=== PATIENT | female | born 1930 | race Caucasian/White ===

== ENCOUNTER 2017-01-16 10:56 | Inpatient (IN) | payer MEDICARE, BC ==
[2017-01-16] MEDS ORDERED: Temazepam 15 MG Cap PO PRN (15:52)
[2017-01-16] MEDS ORDERED: Acetaminophen 325 MG Tab PO PRN (15:52)
[2017-01-16] MEDS ORDERED: Ondansetron 4 MG/2 ML SDV IV PRN (15:52)
[2017-01-16] MEDS ORDERED: Ondansetron 4 MG Tab.DIS PO PRN (15:52)
[2017-01-16] MEDS ORDERED: Ondansetron 8 MG in Sodium Chloride 0.9% 50 ML IV PRN (16:05)
[2017-01-16 16:26] LABS: CHLORIDE,CL 107 mEq/L (98-106); SODIUM,NA 141 mEq/L (136-145)
[2017-01-16] MEDS: Lactated Ringers 1,000 ML IV SCH (17:04)
[2017-01-16] MEDS: Atenolol 25 MG Tab PO SCH (19:35)
[2017-01-16] MEDS: Enoxaparin 30 MG/0.3 ML Syringe SUBCUT SCH (19:35)
[2017-01-16] MEDS: PRAVACHOL 10 MG PO SCH (19:37)
[2017-01-17] MEDS: Lactated Ringers 1,000 ML IV SCH (02:42)
[2017-01-17] MEDS: Atenolol 25 MG Tab PO SCH ×2 (07:39→19:48)
[2017-01-17] MEDS: SERTRALINE 50 MG PO SCH (07:41)
[2017-01-17] MEDS ORDERED: Sertraline 25 MG Tab PO SCH (08:00)
[2017-01-17] MEDS: AMLODIPINE BENAZEPRIL PO SCH (12:05)
[2017-01-17] MEDS: PRAVACHOL 10 MG PO SCH (19:47)
[2017-01-17] MEDS: Enoxaparin 30 MG/0.3 ML Syringe SUBCUT SCH (19:47)
[2017-01-18] MEDS: SERTRALINE 50 MG PO SCH (07:27)
[2017-01-18] MEDS: Atenolol 25 MG Tab PO SCH ×2 (07:28→20:16)
--- NOTE | 2017-01-18 08:58 | PN ---
DATE: 01/17/2017 S: Shanice was admitted last night for gastroenteritis likely viral. Her stools are still prevalent, but less in frequency than prior. She has not spiked any temps. Her vitals have been fine. Lab work on admission was all normal including an amylase. O: GENERAL: She is pleasant, alert, and cooperative. She appears in no distress. HEENT: Benign. Mucous membranes are moist. NECK: Supple. LUNGS: Clear. CARDIAC: Tones are regular. No abdominal pain. No peripheral edema. ASSESSMENT: GASTROENTERITIS. P: We will discontinue her IV fluids. Advanced her diet today if she tolerates. We are still waiting on stool studies. C diff was negative. Clinically, she looks much better, however. TERE/WYATT /[id number]
[2017-01-18] MEDS: AMLODIPINE BENAZEPRIL PO SCH (12:29)
--- NOTE | 2017-01-18 12:36 | PN ---
DATE: 01/18/2017 S: Shanice has been afebrile, but she is continuing to have profuse clear diarrhea. No real abdominal pain. She is not complaining of much nausea or vomiting. O: GENERAL: Her she is pleasant and cooperative. Appears in no distress. NECK: Supple. Veins are flat. LUNGS: Appear clear. CARDIAC: Tones are irregular. ABDOMEN: Soft and nontender with good bowel sounds. ASSESSMENT: GASTROENTERITIS. P: The patient continues to not show a lot of improvement. I am going to transfer to acute. I am going to restart her on some low rate IV fluids. She is not having great oral intake and we will continue to follow her electrolytes and renal function at this time. TERE/WYATT /[id number]
[2017-01-18] MEDS: Lactated Ringers 1,000 ML IV SCH ×2 (13:39→21:43)
[2017-01-18] MEDS: Enoxaparin 30 MG/0.3 ML Syringe SUBCUT SCH (20:17)
[2017-01-18] MEDS: PRAVACHOL 10 MG PO SCH (20:18)
[2017-01-19] MEDS: Lactated Ringers 1,000 ML IV SCH (05:52)
[2017-01-19] MEDS ORDERED: Sertraline 25 MG Tab PO SCH (08:00)
[2017-01-19] MEDS: Atenolol 25 MG Tab PO SCH ×2 (08:17→19:50)
[2017-01-19] MEDS: AMLODIPINE BENAZEPRIL PO SCH (12:23)
--- NOTE | 2017-01-19 15:06 | PN ---
DATE: 01/19/2017 S: Shanice is better, stool frequency is less still, not with any fluidity to it, but she is only going about every 4 to 5 hours now. We are still not finding any obvious etiology. Stool cultures apparently are still pending and I have yet to see them C. diff is negative. She has not had any fevers. She denies any pain at this time. O: GENERAL: She is pleasant, alert, and cooperative. NECK: Supple. Veins are flat. LUNGS: Clear. CARDIAC: Tones are irregular. ABDOMEN: Soft, completely benign, and nontender. ASSESSMENT: GASTROENTERITIS WITH DEHYDRATION. P: She looks clinically hydrated now. She is tolerating intake. We are going to get her up and ambulating, advance her diet. Stop her IV fluids. If she is doing well tomorrow, I am going to recommend she goes home. She is on a low- dose Zoloft, number one side effect of that can be loose stools, and so I am going to stop that for now. Still awaiting on stool cultures and we will try to have lab expedite that. TERE/WYATT /[id number]
[2017-01-19] MEDS: Enoxaparin 30 MG/0.3 ML Syringe SUBCUT SCH (19:26)
[2017-01-19] MEDS: PRAVACHOL 10 MG PO SCH (19:54)
[2017-01-20] MEDS: Atenolol 25 MG Tab PO SCH (08:27)
[2017-01-20] MEDS: AMLODIPINE BENAZEPRIL PO SCH (12:09)
[2017-01-20 12:14] VITALS: BP 110/54
--- NOTE | 2017-01-21 07:39 | DISCH ---
FINAL DIAGNOSIS: Acute gastroenteritis. HISTORY OF PRESENT ILLNESS: Shanice is an 86-year-old female who was admitted initially on the 01/16/2017 with gastroenteritis that was likely viral. She did have a normal laboratory. On admission, she was afebrile. LABORATORY DATA: Stool cultures were all grossly benign. CBC showed a normal white blood count at 7400. CMP was grossly unremarkable. Creatinine was mildly elevated at 1.3 which has improved down to 1.1 as of the 01/18/2017. Urinalysis was negative for UTI. HOSPITAL COURSE: Shanice had uneventful hospital stay. She has been gradually improving every single day. She does admit that she had a little bit of diarrhea this morning, however, this is slowly improving. Her appetite is slowly improving. She does admit that she feel her normal self. She does not get any IV or any fluids, and the treatment stopped. She has been trying to drink the fluids. She admits she had a little bit of coffee this morning. Now she states that she does feel a little bit of weak. However, she has been able to be ambulatory, get up and gradually improving strength as well. PHYSICAL EXAMINATION: VITAL SIGNS: This morning does show blood pressure 106/52 with a respiratory rate of 16, O2 is 96%, pulse is 72 with a temperature of 96.8. GENERAL: Pleasant, cooperative female. She is sitting in a chair, does not appear to be in any acute distress and does not appear to be acutely ill. HEENT: Grossly unremarkable. LUNGS: Clear to auscultation. I did not hear any adventitious sounds. CARDIAC: Regular rate and rhythm. No murmurs, gallops, or rubs are noted. ABDOMEN: Soft. Bowel sounds are normoactive. No organomegaly. No guarding or rigidity. No distention is noted. EXTREMITIES: No pedal edema is noted. ASSESSMENT: 1. Acute gastroenteritis. 2. Chronic diarrhea. PLAN: We will get discharging her home today. We will resume all home medications, however, that we will stop the sertraline as this was stopped yesterday with concerns of causing some chronic diarrhea. We will have her follow up with Dr. Barcenas on Monday for recheck. We did not give her any medications at this point in time to help with any diarrhea as we will wait to see if this sertraline shows any improvement. She does verbalize complete understanding. Does feel comfortable with going home today in which we will discharge at this time. LELAND/WYATT /[id number]
== END 2017-01-20 12:35 | disposition home or self-care (01) | DRG 392 ==
LOC: CC.MS 10:56 → UNDOADMOB 15:26 → CC.MS 15:26 → UNDOADMOB 15:52 → CC.MS 15:52 → OBSVTOIN 01-18 10:56
PROVIDERS: ADMIT Family Medicine; ATTEND Family Medicine
DX: A08.4 Viral intestinal infection, unspecified (principal); E86.0 Dehydration; M19.90 Unspecified osteoarthritis, unspecified site; K52.9 Noninfective gastroenteritis and colitis, unspecified; I48.91 Unspecified atrial fibrillation; F32.9 Major depressive disorder, single episode, unspecified; F41.9 Anxiety disorder, unspecified; K21.9 Gastro-esophageal reflux disease without esophagitis; I11.0 Hypertensive heart disease with heart failure; I50.9 Heart failure, unspecified; E78.00 Pure hypercholesterolemia, unspecified; G62.9 Polyneuropathy, unspecified; Z79.82 Long term (current) use of aspirin; Z79.899 Other long term (current) drug therapy; Z95.0 Presence of cardiac pacemaker
CPT/HCPCS: 36415 ×2; 74020; 80053; 81001; 82150; 85025; 86140; 87045; 87046 ×3; 87493; A9270 ×8; J1650 ×2; J7120 ×2; 80048; 96360; 96361; 96372; 99220; 99225; G0378

== ENCOUNTER 2018-05-23 13:41 | Observation (INO) | payer MEDICARE, BC ==
[2018-05-23 13:49] LABS: O2 DELIVERY DEVICE ROOM AIR
[2018-05-23 14:15] LABS: O2 SATURATION ARTERIAL 98 % (95-98); PCO2 ARTERIAL 31 mm/Hg0 (35-45); PO2 ARTERIAL 100 mm/Hg (80-100)
[2018-05-23] MEDS ORDERED: Acetaminophen 325 MG Tab PO PRN (16:07)
[2018-05-23] MEDS ORDERED: Sodium Chloride 0.9% 10 ML Syringe FLUSH PRN (16:07)
[2018-05-23] MEDS: ATENOLOL 25 MG PO SCH (19:53)
[2018-05-23] MEDS ORDERED: diphenhydrAMINE 25 MG Cap PO SCH (20:00)
[2018-05-23] MEDS ORDERED: PRAVASTATIN 10 MG PO SCH (20:00)
[2018-05-23] MEDS ORDERED: Enoxaparin 30 MG/0.3 ML Syringe SUBCUT SCH (20:00)
[2018-05-23] MEDS ORDERED: Acetaminophen 500 MG Tab PO SCH (20:00)
[2018-05-24 07:12] VITALS: BP 115/41
[2018-05-24] MEDS: ATENOLOL 25 MG PO SCH (07:29)
[2018-05-24] MEDS ORDERED: POTASSIUM CHLORIDE 10 MEQ PO SCH (08:00)
[2018-05-24] MEDS ORDERED: **PTOM** Furosemide 40 MG Tab PO SCH (08:00)
[2018-05-24] MEDS ORDERED: AMLODIPINE BESYLATE PO SCH (12:00)
[2018-05-24] MEDS ORDERED: BENAZEPRIL PO SCH (12:00)
== END 2018-05-24 10:42 | disposition home or self-care (01) ==
LOC: CC.MS 13:41 → CC.FCMC 13:41 → UNDOADMOB 14:34 → CC.MS 14:34
PROVIDERS: ADMIT Physician Assistant Medical; ATTEND Family Medicine
DX: R42 Dizziness and giddiness (principal); R74.8 Abnormal levels of other serum enzymes; I10 Essential (primary) hypertension; E11.42 Type 2 diabetes mellitus with diabetic polyneuropathy; E78.5 Hyperlipidemia, unspecified; K21.9 Gastro-esophageal reflux disease without esophagitis; Z79.82 Long term (current) use of aspirin; Z79.899 Other long term (current) drug therapy
CPT/HCPCS: 36415; 36600; 80048; 82550; 82803; 84484; 85025; 93005; 96372; A9270; G0378; J1650

== ENCOUNTER → 2020-06-12 | Day surgery (SDC) | payer MEDICARE, BC ==
[~2020-06-12] MED LIST: Ketamine 200 MG/20 ML MDV IV ONE; Lactated Ringers 1,000 ML IV SCH; Propofol 200 MG/20 ML SDV IV ONE; fentaNYL 100 MCG/2 ML SDV IV ONE
[2020-06-12 10:04] VITALS: BP 160/74; PULSE 71
--- NOTE | 2020-06-12 12:23 | OR ---
DATE OF OPERATION: 06/12/2020 PREOPERATIVE DIAGNOSIS: HISTORY OF GASTRIC ARTERIOVENOUS MALFORMATION. POSTOPERATIVE DIAGNOSIS: HISTORY OF GASTRIC ARTERIOVENOUS MALFORMATION. SURGEON: Fran Barcenas MD PROCEDURE: EGD. ANESTHESIA: MAC. COMPLICATIONS: None. SPECIMEN: None. FINDINGS: 1. Full-length EGD. 2. No active AVMs visualized. 3. GERD without esophagitis. RECOMMENDATIONS: The patient cleared for Watchman procedure. INDICATIONS: The patient is set to undergo Watchman procedure for her AFib as she is a poor candidate for anticoagulation. Due to her history of gastric AVMs, we elected to proceed with preoperative EGD to ensure no active bleeding sites. DESCRIPTION OF PROCEDURE: The patient was prepped and draped, placed in the left lateral decubitus position. A lubricated Olympus gastroscope was inserted, advanced to the cricopharyngeus region, easily intubated into the esophagus. The esophageal lining was benign in its entire course. There was some minimal spontaneous reflux, but no distal esophagitis, stricturing, ulceration, or Aelgre's changes. The scope was advanced into the stomach, through the pylorus, and into the second portion of the duodenum. This and the duodenal bulb were benign. The scope was brought back into the stomach and retroflexed. The prior AVM in the upper part of the fundus was not seen. There were no signs of any active bleeding sites, other AVMs, lesions, polyps, ulcerations, or otherwise. The full stomach was visualized with and without retroflexion of the scope. Air was then suctioned, the scope removed without complication. TERE/WYATT /[id number]
== END ==
LOC: CC.SDS 08:31
PROVIDERS: ATTEND Family Medicine
DX: K21.9 Gastro-esophageal reflux disease without esophagitis (principal); E78.00 Pure hypercholesterolemia, unspecified; E11.9 Type 2 diabetes mellitus without complications; I48.91 Unspecified atrial fibrillation; I11.0 Hypertensive heart disease with heart failure; E11.42 Type 2 diabetes mellitus with diabetic polyneuropathy; I50.9 Heart failure, unspecified; Z79.899 Other long term (current) drug therapy; Z79.82 Long term (current) use of aspirin; Z98.890 Other specified postprocedural states; Z95.0 Presence of cardiac pacemaker; Z87.798 Personal history of other (corrected) congenital malformations
CPT/HCPCS: 43235; J2001; J2704; J3010; J7120